=== PATIENT | female | born 1960 | race Caucasian/White ===

== ENCOUNTER 2023-04-27 11:43 | Outpatient (CLI) | payer OTHER | END 2023-04-27 11:44 | disposition home or self-care (01) | LOC: CSHRAD 11:43 | PROVIDERS: ATTEND Nurse Practitioner | DX: M79.645 Pain in left finger(s) (principal); S62.525A Nondisplaced fracture of distal phalanx of left thumb, initial encounter for closed fracture ==

== ENCOUNTER 2023-08-09 10:33 | Outpatient (CLI) | payer OTHER | END 2023-08-09 10:34 | disposition home or self-care (01) | LOC: CSHMAMMO 10:33 | PROVIDERS: ATTEND Obstetrics & Gynecology | DX: Z12.31 Encounter for screening mammogram for malignant neoplasm of breast (principal); Z80.3 Family history of malignant neoplasm of breast; Z91.89 Other specified personal risk factors, not elsewhere classified | CPT/HCPCS: 77063; 77067 ==

== ENCOUNTER 2024-11-05 14:37 | Outpatient (CLI) | payer OTHER | END 2024-11-05 14:38 | disposition home or self-care (01) | LOC: CSHMAMMO 14:37 | PROVIDERS: ATTEND Internal Medicine | DX: Z12.31 Encounter for screening mammogram for malignant neoplasm of breast (principal); Z80.3 Family history of malignant neoplasm of breast; Z91.89 Other specified personal risk factors, not elsewhere classified | CPT/HCPCS: 77063; 77067 ==